=== PATIENT | female | born 1950 | race Caucasian/White ===

== ENCOUNTER → 2025-05-18 13:56 | Outpatient (REF) | payer MEDICARE, BC, SELFPAY | LOC: WDC 13:56 | PROVIDERS: ATTENDING PHYSICIAN Nurse Practitioner Adult Health | DX: Z00.00 Encounter for general adult medical examination without abnormal findings (principal); Z12.31 Encounter for screening mammogram for malignant neoplasm of breast | CPT/HCPCS: 77063; 77067 ==